=== PATIENT | female | born 1985 | race Caucasian/White ===

== ENCOUNTER 2017-09-21 18:37 | Emergency (ER) | payer OTHER ==
[~2017-09-21] VITALS: Ht 162.6 cm; Wt 74.8 kg
[~2017-09-21 18:37] MED LIST: ADVIL; FLEXERIL PO; MEDROLDOSEPACK PO; NORCO 5-325 TA1 EACH PO; NYQUIL; PROZAC40 MG PO; TOBRAMYCIN SULFA5 M1 OP
[2017-09-21] MEDS ORDERED: IBUPROFEN 800800 M1 PO (19:02)
[2017-09-21] MEDS ORDERED: ADDERALL XR 3030 MG PO (19:02)
[2017-09-21] MEDS ORDERED: [UNRECOGNIZED DRUG - OTHER] PO (19:03)
[2017-09-21] MEDS ORDERED: FLEXERIL PO (20:51)
[2017-09-21] MEDS ORDERED: MEDROLDOSEPACK PO (20:51)
[2017-09-21] MEDS ORDERED: ULTRAM 50MG TAB50 MG PO (20:51)
[2017-09-21 21:04] VITALS: BP 117/78
== END 2017-09-21 21:07 | disposition home or self-care (01) ==
LOC: M.ERS 18:37
DX: S16.1XXA Strain of muscle, fascia and tendon at neck level, initial encounter (principal); F90.9 Attention-deficit hyperactivity disorder, unspecified type; F41.9 Anxiety disorder, unspecified; F32.9 Major depressive disorder, single episode, unspecified; V89.2XXA Person injured in unspecified motor-vehicle accident, traffic, initial encounter; Y93.I9 Activity, other involving external motion; Y92.89 Other specified places as the place of occurrence of the external cause; Y99.8 Other external cause status

== ENCOUNTER 2017-12-23 01:42 | Emergency (ER) | payer OTHER ==
[~2017-12-23] VITALS: Ht 162.6 cm; Wt 72.6 kg
[~2017-12-23 01:42] MED LIST changes: +ADDERALL XR 3030 MG PO; +IBUPROFEN 800800 M1 PO; +ULTRAM 50MG TAB50 MG PO; +[UNRECOGNIZED DRUG - OTHER] PO
[2017-12-23] MEDS ORDERED: AMBIEN 5 MG TABL5 M1 PO (01:52)
[2017-12-23] MEDS ORDERED: LIORESAL 10 MG10 MG PO (02:27)
[2017-12-23 02:43] VITALS: BP 138/74
== END 2017-12-23 02:45 | disposition home or self-care (01) ==
LOC: M.ERS 01:42
DX: M62.838 Other muscle spasm (principal); F90.9 Attention-deficit hyperactivity disorder, unspecified type; F41.9 Anxiety disorder, unspecified; F32.9 Major depressive disorder, single episode, unspecified

== ENCOUNTER 2018-01-01 15:36 | Emergency (ER) | payer OTHER ==
[~2018-01-01] VITALS: Ht 162.6 cm; Wt 72.6 kg
[~2018-01-01 15:36] MED LIST changes: +AMBIEN 5 MG TABL5 M1 PO; +LIORESAL 10 MG10 MG PO
[2018-01-01] MEDS ORDERED: FLEXERIL PO (16:20)
[2018-01-01] MEDS ORDERED: NORCO 5-325 TA1 EACH PO (16:29)
[2018-01-01 16:30] VITALS: BP 134/84
== END 2018-01-01 16:31 | disposition home or self-care (01) ==
LOC: M.ERS 15:36
DX: S13.8XXA Sprain of joints and ligaments of other parts of neck, initial encounter (principal); F90.9 Attention-deficit hyperactivity disorder, unspecified type; F32.9 Major depressive disorder, single episode, unspecified; F41.9 Anxiety disorder, unspecified; X50.1XXA Overexertion from prolonged static or awkward postures, initial encounter; Y93.89 Activity, other specified; Y92.89 Other specified places as the place of occurrence of the external cause; Y99.8 Other external cause status